=== PATIENT | female | born 1955 | race Caucasian/White ===

== ENCOUNTER 2022-01-14 00:07 | Day surgery (SDC) | payer OTHER, SELFPAY ==
[2022-01-01 08:44] VITALS: BMI 23.3
[2022-01-14 08:49] VITALS: BP 129/72; PULSE 70; RESP 15; TEMP 36.7; O2SAT 99; BMI 24.7
[2022-01-14] MEDS: LACTATED RINGERS 1,000 ML 150 ML IV CONT (09:00)
--- NOTE | 2022-01-14 09:36 | P.HP_ITS ---
H&P: HPI History of Present Illness Date/Time: 01/14/22 09:36 Chief Complaint: Neoplasia screening Narrative: this is a 66-year-old white female patient presents for screening colonoscopy. Patient's current weight appetite and bowel movements are normal. She denies abdominal pain. She has had no bleeding. Last colonoscopy 10 years ago was unremarkable. Family history noncontributory. Review of Systems Review of Systems: Review of systems noncontributory. [facility] Social History Social History Smoking status: Never smoker Substance use type: does not use Living arrangements: with family Spiritual care concerns: No Meds Home Medications and Allergies Home Medications Medication Instructions Recorded Confirmed Type lisinopril 20 mg tablet 20 mg PO DAILY 01/01/22 01/14/22 History multivitamin with minerals-folic 1 tablet PO DAILY 01/01/22 01/14/22 History acid 0.4 mg tablet Allergies Allergy/AdvReac Type Severity Reaction Status Date / Time Sulfa (Sulfonamide Allergy Mild ???REACTION Verified 01/14/22 08:48 Antibiotics) CHILD Vital Signs Vital Signs - 24 hr 01/14/22 08:49 Temperature 98.1 F Pulse Rate 70 Respiratory Rate 15 Blood Pressure 129/72 Pulse Oximetry 99 Oxygen Delivery Room Air Exam Narrative: Physical exam reveals patient to be alert. Vital signs stable. HEENT exam is unremarkable. Patient is anicteric. Lungs are clear to auscultation and percussion. Heart is without murmur or extra sounds. Abdominal exam bowel sounds are present soft nontender with no organomegaly. Digital external rectal exam is normal. Assessment and Plan Assessment and plan (1) Encounter for screening colonoscopy: Code(s): Z12.11 - Encounter for screening for malignant neoplasm of colon Status: Acute Assessment and Plan: Patient presents today for screening colonoscopy. Appears to be at average risk for colon polyps. Further recommendations will be given after endoscopy.
--- NOTE | 2022-01-14 09:51 | P.PNAN_ITS ---
Anes - Initial Pre Proc Eval Procedure: Operation Date: 01/14/22 10:00 Proposed Procedures p Screening Colonoscopy - Tyrone Hoang MD Date/Time: 01/14/22 09:51 Surgeon: Tyrone Hoang MD Pre Op Diagnosis: Neoplasm Screening Patient Data Age: 66 Gender: F Height: 1.65 m Weight: 67.4 kg Last Vital Signs Temp 98.1 F 01/14/22 08:49 Pulse 70 01/14/22 08:49 Resp 15 01/14/22 08:49 BP 129/72 01/14/22 08:49 Pulse Ox 99 01/14/22 08:49 O2 Del Method Room Air 01/14/22 08:49 Allergies Allergy/AdvReac Type Severity Reaction Status Date / Time Sulfa (Sulfonamide Allergy Mild ???REACTION Verified 01/14/22 08:48 Antibiotics) CHILD Home Medications Medication Instructions Recorded Confirmed Type lisinopril 20 mg tablet 20 mg PO DAILY 01/01/22 01/14/22 History multivitamin with minerals-folic 1 tablet PO DAILY 01/01/22 01/14/22 History acid 0.4 mg tablet Patient hx anesthesia problems: none Family hx anesthesia problems: none Results Review: All pre-operative results and documents have been reviewed as part of the pre- operative evaluation. PMFSH Social History Social History Smoking status: Never smoker Substance use type: does not use Living arrangements: with family Spiritual care concerns: No Anes - Eval Final PreProcedure Day of Procedure 01/14/22 09:51 Patient weight: normal Heart: regular rate and rhythm Lungs: clear to auscultation Airway: Mallampati scale class II Neurological: alert and oriented Last oral intake: >/= 8 hours ASA classification: II Emergent: no Anesthetic plan: proceed Anesthesia type and monitoring: general GIVS and standard monitoring Results Review: All pre-operative results and documents have been reviewed as part of the pre- operative evaluation. Informed Consent: The patient's anesthetic plan and its attendant risks and benefits were discussed with the patient/family/POA. Questions were solicited and answers provided to the satisfaction of the patient/family/POA.
[2022-01-14 10:27] VITALS: BP 121/76; PULSE 64; RESP 20; O2SAT 100
[2022-01-14 10:37] VITALS: BP 141/76; PULSE 64; RESP 16; O2SAT 100
[2022-01-14 10:47] VITALS: BP 139/76; PULSE 64; RESP 16; O2SAT 100
== END 2022-01-14 11:00 | disposition home or self-care (01) ==
PROVIDERS: PCP Family Medicine; Visit Provider Internal Medicine Gastroenterology
PROC: 0DJD8ZZ Inspection of Lower Intestinal Tract, Via Natural or Artificial Opening Endoscopic (ICD-10-PCS; CPT 45378; principal; 2022-01-14 10:00)
DX: Z12.11 Encounter for screening for malignant neoplasm of colon (principal); K64.8 Other hemorrhoids
CPT/HCPCS: 45378; J2704; J7120

== ENCOUNTER 2025-03-01 09:49 | Outpatient (CLI) | payer MEDICARE, SELFPAY ==
--- NOTE | ~2025-03-01 | DEXA_ITS ---
Bone Density Report Name: TIFFANIE BECERRA Age: 69 Sex: Female Ethnicity: White Date of : 1955 Indication: postmenopausal; screening for osteoporosis; height loss; cancer; Referring Provider: KATHERYN MILTON Study: Bone densitometry was performed. Exam Date: March 01, 2025 Accession number: [id number] Bone Density: Region BMD T-score Z-score Classification AP Spine(L1-L4) 1.073 0.2 2.3 Normal Femoral Neck (Left) 0.614 -2.1 -0.3 Osteopenia Total Hip (Left) 0.791 -1.2 0.3 Osteopenia Femoral Neck (Right) 0.671 -1.6 0.2 Osteopenia Total Hip (Right) 0.916 -0.2 1.3 Normal Total Hip Mean 0.853 -0.7 0.8 Normal World Health Organization criteria for BMD impression classify patients as: Normal (T-score at or above -1.0), Osteopenia (T-score between -1.0 and -2.5), or Osteoporosis (T-score at or below -2.5). 10-year Fracture Risk(1): Major Osteoporotic Fracture 12% Hip Fracture 2.3% Reported Risk Factors: [place] (), Neck BMD=0.614, BMI=26.8 (1) FRAX(R) Version 3.08. Fracture probability calculated for an untreated patient. Fracture probability may be lower if the patient has received treatment. Clinical Information Provided by Patient: Has the following medical conditions: Cancer Patient maximum height was 67.0 Menopause Age: 53 Drinks caffeinated beverages Onset of menses at age 13 Impression: The patient has low bone mass, based on the Left Femoral Neck T-score. The patient has an estimated ten-year risk of hip fracture of 2.3% and an estimated ten-year risk of major fracture of 12%, based on the WHO FRAX algorithm. Discussion: BONE DENSITY IS LOW AT ONE OR MORE SKELETAL SITES. This patient's lowest T-score is low at one or more skeletal sites. It meets the World Health Organization's (WHO) criteria for ?low bone mass? (T-score between -1.0 and -2.5). The patient's 10-year risk of fracture as calculated by FRAX is less than the threshold where pharmacological therapy is recommended by the National Osteoporosis Foundation (NOF). However, all treatment decisions require clinical judgment and consideration of individual patient factors, including patient preferences, comorbidities, previous drug use, risk factors not captured in the FRAX model (e.g., frailty, falls, vitamin D deficiency, increased bone turnover, interval significant decline in bone density) and possible under or overestimation of fracture risk by FRAX. The patient should follow a healthful lifestyle (good nutrition with adequate calcium and vitamin D, and appropriate weight-bearing exercise). Follow-Up: Consider repeating this study in 2 to 3 years to reassess this patient's status, or sooner if there is some new clinical indication. Reported by: [place] on 03/01/2025 10:28:00 AM. Reviewed, dictated and finalized at location A.
--- OUTSIDE RECORDS SUMMARY | 2025-03-01 10:51 | XMS_ITS | Encounter Summary ---
Author Organization [facility] Address [address] [facility] [address] [place] [address] Phone Care Team Providers Care Delivery Professional Name Role Phone Neymar Aldrich MD Primary Care Provider [phone] Encounter Details Date Type Department Care Team (Late st Contact Info) Description 02/20/2025 Results Follow-Up [facility] Medicine Surgery [address] [place] [id number] Chiquita Allen PA [address] [facility] [phone] [place] [address] Screening Mammogram Bilateral W Madi Social History Tobacco Use Types Packs/Day Years Used Date Smoking Tobacco: Never Comments No Sex and Gender Information Value Date Recorded Sex Assigned at Not on file 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
--- OUTSIDE RECORDS SUMMARY | 2025-03-01 10:51 | XMS_ITS | Clinical Summary ---
Author Organization [facility] Address [address] [address] Care Team Providers Care Game Advisor Name Role Phone Unavailable Primary Care Provider Unavailabl e Medications No known medications Active Problems No known active problems Encounters Date Type Department Care Team Description 02/14/2025 External Device Data [facility] ABSTRACTION Provider, Abstract 02/08/2025 External Device Data [facility] ABSTRACTION Provider, Abstract from Last 3 Months Social History Tobacco Use Types Packs/Day Years Used Date Smoking Tobacco: Never Assessed Comments Unknown Sex and Gender Information Value Date Recorded Sex Assigned at Not on file Legal Sex Female 2:56 PM ANESTHESIOLOGY PHYSICIAN ASSISTANT Gender Identity Not on file Sexual Orientation Not on file Last Filed Vital Signs Vital Sign Reading Time Taken Comments Blood Pressure 134/78 04/28/2021 1:54 PM ANESTHESIOLOGY PHYSICIAN ASSISTANT Pulse 84 04/28/2021 1:54 PM ANESTHESIOLOGY PHYSICIAN ASSISTANT Temperature 36.5 C (97.7 F) 04/28/2021 1:54 PM ANESTHESIOLOGY PHYSICIAN ASSISTANT Respiratory Rate 18 04/28/2021 1:54 PM ANESTHESIOLOGY PHYSICIAN ASSISTANT Oxygen Saturation 98% 04/28/2021 1:54 PM ANESTHESIOLOGY PHYSICIAN ASSISTANT Inhaled Oxygen Concentration - - Weight 61.2 kg (135 lb) 04/28/2021 1:54 PM ANESTHESIOLOGY PHYSICIAN ASSISTANT Height 168.9 cm (5' 6.5) 04/28/2021 1:54 PM ANESTHESIOLOGY PHYSICIAN ASSISTANT Body Mass Index 21.46 04/28/2021 1:54 PM ANESTHESIOLOGY PHYSICIAN ASSISTANT Plan of Treatment Health Maintenance Due Date Last Done Comments DTAP/TDAP/TD VACCINES (1 - Tdap) 1974 COLORECTAL SCREENING 2000 Colorectal Cancer Screening 2000 FIT-DNA Q 3 years 2000 FIT/FOBT Q 1 year 2000 Flex Sig/CT Colonography Q 5 years 2000 PNEUMOCOCCAL VACCINE 50+ YEARS (1 of 1 - PCV) 03/03/20 05 ZOSTER VACCINE (1 of 2) 2005 OSTEOPOROSIS SCREENING 2020 BREAST CANCER SCREENING 11/27/2021 11/27/2020 INFLUENZA VACCINE (#1) 2025 RSV VACCINE (60+ or ) (1 - 1-dose 75+ series) 2030 Insurance [employer] CHOICE POS II
--- OUTSIDE RECORDS SUMMARY | 2025-03-01 10:51 | XMS_ITS | Encounter Summary ---
Author Organization [facility] Address [address] [facility] [address] [place] [address] Phone Care Team Providers Care Contact Center Professional Name Role Phone Neymar Aldrich MD Primary Care Provider [phone] Encounter Details Date Type Department Care Team (Late st Contact Info) Description 02/17/2025 Telephone [facility] Medicine Surgery [address] [facility] [address] [place] [address] Chiquita Allen PA [address] [facility] [phone] [place] [address] Social History Tobacco Use Types Packs/Day Years Used Date Smoking Tobacco: Never Comments No Sex and Gender Information Value Date Recorded Sex Assigned at Not on file 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
--- OUTSIDE RECORDS SUMMARY | 2025-03-01 10:51 | XMS_ITS | Clinical Summary ---
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 Role Phone Neymar Aldrich MD Primary Care Provider [phone] Allergies Active Allergy Reactions Criticality Noted Date Comments Sulfa (Sulfonamide Antibiotics) Unknown 10/13 Medications lisinopriL (PRINIVIL,ZESTRI L) 20 mg tablet TAKE 1 TABLET BY MOUTH ONCE A DAY FOR 90 DAYS 10/09/2021 Active Active Problems Problem Noted Date Diagnosed Date History of breast cancer 10/29/2018 Encounters Date Type Department Care Team Description 02/20/2025 Results Follow-Up [facility] [address] [place] [phone] Chiquita Allen PA Screening Mammogram Bilateral W Madi 02/17/2025 11:57 AM CDT - 02/17/2025 11:59 PM CDT Hospital Encounter [facility] - [facility] Imaging [address] [place] [phone] History of breast cancer; Encounter for screening mammogram for malignant neoplasm of breast Discharge Disposition: Discharge to home or self care 02/17/2025 11:45 AM CDT Office Visit [facility] [address] [place] [phone] Chiquita Allen PA History of breast cancer (Primary Dx); History of partial mastectomy of left breast; Encounter for screening mammogram for malignant neoplasm of breast 02/17/2025 Telephone [facility] [address] [place] [address], [place] [phone] Chiquita Allen PA 01/18/2025 10:40 AM CDT Office Visit [facility] [id number] [place] [address] 2nd Floor [address] [place] [phone] Rizwan Peterson MD Right wrist pain (Primary Dx) 01/18/2025 9:15 AM CDT Office Visit [facility] [address] [place] [address] Floor [address] [place] [phone] Amairani Cook NP Closed displaced comminuted fracture of left patella with routine healing, subsequent encounter (Primary Dx); Acute pain of left knee; Patellofemoral chondrosis of left knee 01/18/2025 8:56 AM CDT - 01/18/2025 11:59 PM CDT Hospital Encounter [facility] [address] [place] [phone] Right wrist pain Discharge Disposition: Discharge to home or self care 01/18/2025 8:56 AM CDT - 01/18/2025 11:59 PM CDT Hospital Encounter [facility] [address] [place] [phone] Closed displaced comminuted fracture of left patella with routine healing, subsequent encounter; Acute pain of left knee Discharge Disposition: Discharge to home or self care 11/30/2024 11:30 AM CDT Office Visit [facility] [address] [place] [address] 2nd Floor [address] [place] [phone] Amairani Cook NP Closed displaced comminuted fracture of left patella with routine healing, subsequent encounter (Primary Dx); Acute pain of left knee 11/30/2024 10:35 AM CDT - 11/30/2024 11:59 PM CDT Hospital Encounter [facility] [address] [place] [phone] Discharge Disposition: Discharge to home or self care 11/30/2024 10:34 AM CDT - 11/30/2024 11:59 PM CDT Hospital Encounter [facility] [address] [place] [address] Closed punch fracture distal radius, right, initial encounter Discharge Disposition: Discharge to home or self care 11/30/2024 10:00 AM CDT Office Visit [facility] Surgery [address] [facility] 2nd Floor [address] [place] [phone] Rizwan Peterson MD Closed punch fracture distal radius, right, initial encounter (Primary Dx) from Last 3 Months Immunizations Immunization Administration Dates Next Due Influenza, Quadrivalent, Split, Intramuscular Terell (J&J) SARS-CoV-2 Vaccination 08/17/2020 MMR 10/09/2009 Moderna SARS-CoV-2 Monovalent Vaccination (12+ Y RS) 10/07/2021,04/12/2021 ZOSTER Recombinant 06/10/2019,02/26/2019 Surgical History Surgery Date Site/Laterality Comments BREAST LUMPECTOMY 06/02/2011 Left DCIS CHOLECYSTECTOMY 2007 BREAST BIOPSY 04/29/2011 Left DCIS BREAST BIOPSY 05/29/2011 Right benign Medical History Medical History Date Comments Hypertension Breast cancer (HCC) 2011 DCIS History of radiation therapy 2012 Family History Medical History Relation Name Comments Breast cancer Father's Sister Breast cancer Maternal Grandmother Alzheimer's disease Mother Breast cancer Mother's Sister Relation Name Status Comments Father's Sister Maternal Grandmother Mother Mother's Sister Social History Tobacco Use Types Packs/Day Years Used Date Smoking Tobacco: Never Tobacco Cessation:Counseling Given: Not Answered Comments No Sex and Gender Information Value Date Recorded Sex Assigned at Not on file 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 Gender Identity Not on file Sexual Orientation Not on file Obstetrics History Para Term AB IAB SAB Ectopic Multiple Livin g Live Births 1 1 Date Outcome GA Total Labor Labor/2nd/3rd Weight Sex Type Anes PTL Gabriela A1 A5 Name Clin Last Filed Vital Signs Vital Sign Reading Time Taken Comments Blood Pressure 126/70 08/08/2012 4:52 AM 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 Pulse 69 08/08/2012 4:52 AM 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 Temperature - - Respiratory Rate - - Oxygen Saturation 97% 08/08/2012 4:5 2 AM 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 Inhaled Oxygen Concentration - - Weight 73.1 kg (161 lb 3.2 oz) 02/17/2025 11:44 AM CDT standing scale Height 165.5 cm (5' 5.16) 02/17/2025 1 1:44 AM CDT masured Body Mass Index 26.7 02/17/2025 11:44 AM CDT Plan of Treatment Health Maintenance Due Date Last Done Comments Colon Cancer Screening-Colonoscopy 1955 Depression Screening 1955 Fall Risk Assessment 1955 Hepatitis C Screening 1955 Osteoporosis Screening-Bone Density Scan 1955 DTaP/Tdap/Td Vaccine (1 - Tdap) 1966 Hepatitis B Screening 1973 Pneumococcal vaccine 65+ (1 of 1 - PCV) 2005 Well Visit 65+ 2020 Covid-19 Vaccine (4 - 2024-2 6 season) 2025 10/07/2021, 04/12/2021, 08/17/2020 Influenza Vaccine (#1) 2025 02/20/2020 Breast Cancer Screening-Mammogram 02/17/2026 02/17/2025, 02/02/2024, 12/05/2022, Additional history exists Zoster Vaccine Completed 06/10/2019, 02/26/2019 Procedures Procedure Name Priority Date/Time Associated Diagnosis Comments SCREENING MAMMOGRAM BILATERAL W MADI Schedule Routine, Read Routine (OP Routine) 02/17/2025 12:21 PM CDT History of breast cancer Encounter for screening mammogram for malignant neoplasm of breast XR KNEE LEFT 3 VIEWS Schedule Routine, Read Routine (OP Routine) 01/18/2025 9:08 AM CDT Closed displaced comminuted fracture of left patella with routine healing, subsequent encounter Acute pain of left knee XR WRIST RIGHT 3 OR MORE VIEWS Schedule Routine, Read Routine (OP Routine) 01/18/2025 9:08 AM CDT Right wrist pain ORTHO CASTING/SPLINTING Routine 11/30/2024 1:29 PM CDT Closed punch fracture distal radius, right, initial encounter XR WRIST RIGHT 3 OR MORE VIEWS Schedule Routine, Read Routine (OP Routine) 11/30/2024 10:48 AM CDT Closed punch fracture distal radius, right, initial encounter XR KNEE LEFT 3 VIEWS Schedule Routine, Read Routine (OP Routine) 11/30/2024 10:47 AM CDT Closed displaced comminuted fracture of left patella with routine healing, subsequent encounter Acute pain of left knee from Last 3 Months Results * Screening Mammogram Bilateral W Madi (02/17/2025 12:21 PM CDT) Anatomical Region Laterality Modality Breast Bilateral Mammography Impressions 02/20/2025 11:36 AM CDT Bilateral No evidence of malignancy in either breast. OVERALL BI-RADS FINAL ASSESSMENT: 2 - Benign RECOMMENDATION: Recommend bilateral annual screening mammography. Narrative 02/20/2025 11:36 AM CDT EXAMINATION: Screening Mammogram Bilateral W Madi: 02/17/2025 COMPARISON: Relevant prior studies available at the time of interpretation were reviewed, including the most recent mammogram on: 02/02/2024. TECHNIQUE: Mammography was performed with 2D and 3D digital breast tomosynthesis (DBT) images. CAD was utilized. BREAST PARENCHYMAL COMPOSITION: There are scattered areas of fibroglandular density. FINDINGS: Bilateral There is no suspicious mass, calcification, or architectural distortion in either breast. Emili Araya NP [facility] MAMMO PROCEDURES Final Result * XR Knee Left 3 View (01/18/2025 9:08 AM CDT) Anatomical Region Laterality Modality Lower Extremities, Knee Left Computed Radiography 01/18/2025 9:27 AM CDT Impressions 01/18/2025 9:27 AM CDT 1. Unchanged comminuted mildly displaced intra-articular fracture of the right wrist with mild articular incongruence. 2. Probable healing of the mildly displaced transverse left patellar fracture with mild articular incongruence. Electronically signed by: Nagi Moon MD Narrative 01/18/2025 9:27 AM CDT EXAMINATION: XR WRIST RIGHT 3 OR MORE VIEWS, XR KNEE LEFT 3 VIEWS HISTORY: Fracture. FINDINGS: Comparison to 11/30/2024. Right wrist: Unchanged comminuted mildly displaced distal radius intra-articular fracture with mild articular incongruence including 2 mm articular gap and step-off. Alignment is unchanged without significant articular inclination. No significant interval callus formation. Moderate right wrist osteoarthritis. No new fractures. Mild to moderate soft tissue swelling about the wrist. Left knee: Probable healing mildly displaced transverse patellar fracture with unchanged articular incongruence without to 3 mm articular step-off. Probable small residual effusion. Mild patellofemoral compartment osteoarthritis. No new fracture. Procedure Note Nagi Moon MD - 01/18/2025 EXAMINATION: XR WRIST RIGHT 3 OR MORE VIEWS, XR KNEE LEFT 3 VIEWS HISTORY: Fracture. FINDINGS: Comparison to 11/30/2024. Right wrist: Unchanged comminuted mildly displaced distal radius intra-articular fracture with mild articular incongruence including 2 mm articular gap and step-off. Alignment is unchanged without significant articular inclination. No significant interval callus formation. Moderate right wrist osteoarthritis. No new fractures. Mild to moderate soft tissue swelling about the wrist. Left knee: Probable healing mildly displaced transverse patellar fracture with unchanged articular incongruence without to 3 mm articular step-off. Probable small residual effusion. Mild patellofemoral compartment osteoarthritis. No new fracture. IMPRESSION: 1. Unchanged comminuted mildly displaced intra-articular fracture of the right wrist with mild articular incongruence. 2. Probable healing of the mildly displaced transverse left patellar fracture with mild articular incongruence. Electronically signed by: Nagi Moon MD Amairani Cruz NP IMG XR PROCEDU RES Final Result * X-ray wrist right 3+ views (01/18/2025 9:08 AM CDT) Anatomical Region Laterality Modality Upper Extremities, Wrist Right Compute d Radiography 01/18/2025 9:27 AM CDT Impressions 01/18/2025 9:27 AM CDT 1. Unchanged comminuted mildly displaced intra-articular fracture of the right wrist with mild articular incongruence. 2. Probable healing of the mildly displaced transverse left patellar fracture with mild articular incongruence. Electronically signed by: Nagi Moon MD Narrative 01/18/2025 9:27 AM CDT EXAMINATION: XR WRIST RIGHT 3 OR MORE VIEWS, XR KNEE LEFT 3 VIEWS HISTORY: Fracture. FINDINGS: Comparison to 11/30/2024. Right wrist: Unchanged comminuted mildly displaced distal radius intra-articular fracture with mild articular incongruence including 2 mm articular gap and step-off. Alignment is unchanged without significant articular inclination. No significant interval callus formation. Moderate right wrist osteoarthritis. No new fractures. Mild to moderate soft tissue swelling about the wrist. Left knee: Probable healing mildly displaced transverse patellar fracture with unchanged articular incongruence without to 3 mm articular step-off. Probable small residual effusion. Mild patellofemoral compartment osteoarthritis. No new fracture. Procedure Note Nagi Moon MD - 01/18/2025 EXAMINATION: XR WRIST RIGHT 3 OR MORE VIEWS, XR KNEE LEFT 3 VIEWS HISTORY: Fracture. FINDINGS: Comparison to 11/30/2024. Right wrist: Unchanged comminuted mildly displaced distal radius intra-articular fracture with mild articular incongruence including 2 mm articular gap and step-off. Alignment is unchanged without significant articular inclination. No significant interval callus formation. Moderate right wrist osteoarthritis. No new fractures. Mild to moderate soft tissue swelling about the wrist. Left knee: Probable healing mildly displaced transverse patellar fracture with unchanged articular incongruence without to 3 mm articular step-off. Probable small residual effusion. Mild patellofemoral compartment osteoarthritis. No new fracture. IMPRESSION: 1. Unchanged comminuted mildly displaced intra-articular fracture of the right wrist with mild articular incongruence. 2. Probable healing of the mildly displaced transverse left patellar fracture with mild articular incongruence. Electronically signed by: Nagi Moon MD Rizwan Peterson MD IMG XR PROCEDURES Final Re sult * Ortho Casting/Splinting Documentation (11/30/2024 1:29 PM CDT) Narrative Grzegorz Corey - 11/30/2024 1:29 PM CDT Grzegorz Corey 11/30/2024 1:31 PM Ortho Casting/Splinting Documentation Date/Time: 11/30/2024 1:29 PM Performed by: Grzegorz Corey Authorized by: Rizwan Peterson MD Sensation: Normal Skin Condition: Clean, dry, and intact Meghann/Sutures Removed: No Pin Pulled: No Cast Removed: Yes Cast Applied: No Overwrap: No Location: Wrist Wrist: R wrist Supplies: Cast removal only Capillary Refill: Normal Patient tolerance of procedure: Tolerated well, no immediate complications us Rizwan Peterson MD IN CLINIC/BEDSIDE ORDERABL ES Final Result * X-ray wrist right 3+ views (11/30/2024 10:48 AM CDT) Anatomical Region Laterality Modality Upper Extremities, Wrist Right Compute d Radiography 11/30/2024 10:5 3 AM CDT Impressions 11/30/2024 10:53 AM CDT 1. Healing, minimally displaced, intra-articular fracture of the left patella. 2. Healing, mildly displaced and impacted, intra-articular fracture of the distal right radius. Electronically signed by: Moise Anguiano M.D. Narrative 11/30/2024 10:53 AM CDT EXAMINATION: XR KNEE LEFT 3 VIEWS, XR WRIST RIGHT 3 OR MORE VIEWS HISTORY: Left knee and right wrist pain, follow-up FINDINGS: Left knee: 3 view examination of the left knee is compared with a study from 11/01/2024. There is a healing, minimally displaced, intra-articular fracture healed with 1 mm articular incongruity and a small joint effusion. There is mild patellofemoral compartment predominant left knee osteoarthritis Right wrist: 3 view examination of the right wrist is compared with a study from 11/01/2024. There is a healing, comminuted, intra-articular fracture of the distal radius with unchanged mild articular surface impaction and neutral inclination. There is severe osteoarthritis at the thumb basal joint. Soft tissue swelling has improved. Procedure Note Moise Anguiano MD - 11/30/2024 EXAMINATION: XR KNEE LEFT 3 VIEWS, XR WRIST RIGHT 3 OR MORE VIEWS HISTORY: Left knee and right wrist pain, follow-up FINDINGS: Left knee: 3 view examination of the left knee is compared with a study from 11/01/2024. There is a healing, minimally displaced, intra-articular fracture healed with 1 mm articular incongruity and a small joint effusion. There is mild patellofemoral compartment predominant left knee osteoarthritis Right wrist: 3 view examination of the right wrist is compared with a study from 11/01/2024. There is a healing, comminuted, intra-articular fracture of the distal radius with unchanged mild articular surface impaction and neutral inclination. There is severe osteoarthritis at the thumb basal joint. Soft tissue swelling has improved. IMPRESSION: 1. Healing, minimally displaced, intra-articular fracture of the left patella. 2. Healing, mildly displaced and impacted, intra-articular fracture of the distal right radius. Electronically signed by: Moise Anguiano M.D. Rizwan Peterson MD IMG XR PROCEDURES Final Re sult * XR Knee Left 3 View (11/30/2024 10:47 AM CDT) Anatomical Region Laterality Modality Lower Extremities, Knee Left Computed Radiography 11/30/2024 10:5 3 AM CDT Impressions 11/30/2024 10:53 AM CDT 1. Healing, minimally displaced, intra-articular fracture of the left patella. 2. Healing, mildly displaced and impacted, intra-articular fracture of the distal right radius. Electronically signed by: Moise Anguiano M.D. Narrative 11/30/2024 10:53 AM CDT EXAMINATION: XR KNEE LEFT 3 VIEWS, XR WRIST RIGHT 3 OR MORE VIEWS HISTORY: Left knee and right wrist pain, follow-up FINDINGS: Left knee: 3 view examination of the left knee is compared with a study from 11/01/2024. There is a healing, minimally displaced, intra-articular fracture healed with 1 mm articular incongruity and a small joint effusion. There is mild patellofemoral compartment predominant left knee osteoarthritis Right wrist: 3 view examination of the right wrist is compared with a study from 11/01/2024. There is a healing, comminuted, intra-articular fracture of the distal radius with unchanged mild articular surface impaction and neutral inclination. There is severe osteoarthritis at the thumb basal joint. Soft tissue swelling has improved. Procedure Note Moise Anguiano MD - 11/30/2024 EXAMINATION: XR KNEE LEFT 3 VIEWS, XR WRIST RIGHT 3 OR MORE VIEWS HISTORY: Left knee and right wrist pain, follow-up FINDINGS: Left knee: 3 view examination of the left knee is compared with a study from 11/01/2024. There is a healing, minimally displaced, intra-articular fracture healed with 1 mm articular incongruity and a small joint effusion. There is mild patellofemoral compartment predominant left knee osteoarthritis Right wrist: 3 view examination of the right wrist is compared with a study from 11/01/2024. There is a healing, comminuted, intra-articular fracture of the distal radius with unchanged mild articular surface impaction and neutral inclination. There is severe osteoarthritis at the thumb basal joint. Soft tissue swelling has improved. IMPRESSION: 1. Healing, minimally displaced, intra-articular fracture of the left patella. 2. Healing, mildly displaced and impacted, intra-articular fracture of the distal right radius. Electronically signed by: Moise Anguiano M.D. 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
== END 2025-03-01 09:50 | disposition home or self-care (01) ==
PROVIDERS: PCP Family Medicine; Visit Provider Family Medicine
DX: M85.89 Other specified disorders of bone density and structure, multiple sites (principal); Z78.0 Asymptomatic menopausal state
CPT/HCPCS: 77080